=== PATIENT | male | born 1930 | race Caucasian/White ===

== ENCOUNTER → 2016-04-03 | Outpatient (CLI) | payer MEDICARE, BC ==
--- NOTE | 2016-04-03 15:13 | CT ---
EXAM DESCRIPTION: Chest CT. CLINICAL HISTORY: Shortness of breath. COMPARISON: July 2011. TECHNIQUE: A volumetric CT without IV contrast was acquired and displayed in multiplanar reconstructions. FINDINGS: Mediastinum: Pacing device noted. Coronary artery disease noted. Visualized lymph nodes are within normal limits for CT size criteria. No acute aortic abnormality, pericardial effusion, or mediastinal mass. Upper Abdomen: Visualized segments of the abdominal organs are unremarkable. Lungs: There is continued paraseptal emphysema noted bilaterally on today's study. Interval development of a superior segment right lower lobe medial lung mass. This measures 3.1 x 1.9 cm in diameter. No additional masses noted on today's study. Ground scarring in ground-glass seen within the right middle lobe, lingula and right lateral lung base. Bones: No suspicious bone lesion is seen. IMPRESSION: There is been interval development of a 3.1 x 1.9 cm medial right lower lobe pulmonary mass. This is located adjacent to the thoracic vertebral bodies. Biopsy is recommended. Dr. Klein was notified at time of dictation. Paraseptal emphysema has remained stable. Coronary artery disease also noted. Electronically signed by: Vincenzo Perez MD 04/03/2016 15:10
== END ==
LOC: CT 11:28
PROVIDERS: ATTEND Family Medicine
DX: R05 Cough (principal); R91.8 Other nonspecific abnormal finding of lung field; J43.8 Other emphysema; I25.10 Atherosclerotic heart disease of native coronary artery without angina pectoris; M62.81 Muscle weakness (generalized)

== ENCOUNTER → 2016-04-08 | Outpatient (CLI) | payer MEDICARE, BC | LOC: SL 20:30 | PROVIDERS: ATTEND Family Medicine | DX: G47.33 Obstructive sleep apnea (adult) (pediatric) (principal); I50.9 Heart failure, unspecified ==

== ENCOUNTER → 2016-05-20 | Outpatient (CLI) | payer MEDICARE, BC | LOC: SL 20:30 | PROVIDERS: ATTEND Family Medicine | DX: G47.33 Obstructive sleep apnea (adult) (pediatric) (principal) ==

== ENCOUNTER 2016-07-05 15:17 | Inpatient (IN) | payer MEDICARE, BC ==
[2016-07-05] MEDS ORDERED: MAGNESIUM HYDROXIDE 30 ML UD PO PRN (15:53)
[2016-07-05] MEDS ORDERED: DEXTROSE 50% 25 GM/50 ML SYG IV PRN (15:53)
[2016-07-05] MEDS ORDERED: SODIUM PHOS/BIPHOS ENEMA ADULT 133 ML BTTL PR PRN (15:53)
[2016-07-05] MEDS ORDERED: GLUCAGON INJ 1 MG VIAL SUBCU PRN (15:53)
[2016-07-05] MEDS: INSULIN LISPRO 100 UNITS/ML PEN SUBCU SCH ×2 (18:47→21:00)
--- NOTE | 2016-07-05 20:46 | HP ---
SUPERVISING PHYSICIAN: Angel Wheatley M.D. CHIEF COMPLAINT: Swing Bed admission for strengthening and reconditioning status post right lower lobe lobectomy for small cell lung carcinoma. HISTORY OF PRESENT ILLNESS: Mr. Wise is an 86 year-old male patient that was referred from [facility] having discharged today to be admitted to Swing Bed for conditioning and rehabilitation. He was admitted at [facility] on 06/27/16 for a right lower lobe lobectomy to remove a right lower lung tumor that was noted to be on biopsy as a non-small cell lung cancer. He had an elective thoracotomy with right lower lobe lobectomy with initial need for a chest tube placement. The patient did well through the hospitalization but given the length of stay, he was severely deconditioned and therefore it was requested that the patient be transferred from [facility] and admitted to Swing Bed to continue with rehabilitation and reconditioning efforts. The patient is placed into Swing Bed in stable condition. PAST MEDICAL HISTORY: 1. Hypertension. 2. Chronic obstructive pulmonary disease. 3. Gastroesophageal reflux disease. 4. Chronic incontinence. 5. Osteoarthritis. 6. Hypothyroidism. 7. Hyperlipidemia. 8. Coronary artery disease with multiple stent placements in 1996, 2004 and 2006. 9. Peripheral neuropathy. 10. History of paroxysmal atrial fibrillation with permanent pacemaker implantation. 11. Recent diagnosis of right lower lobe lung cancer identified as a non-small cell lung cancer. PAST SURGICAL HISTORY: 1. Bilateral cataract removal. 2. Coronary artery stent placements to the LAD in 1996, RCA in 2004 and a re-stent of the RCA in 2006. 3. Hernia repair in 1979. 4. Tonsillectomy. 5. Left stapedectomy. 6. Prostatectomy secondary to prostate cancer. 7. Inguinal hernia repair. 8. Vasectomy. 9. Cardiac pacemaker implantation. HOME MEDICATIONS: Please refer to updated list of home medications that have been verified on admission in the electronic medical records. ALLERGIES: CODEINE AND PENICILLIN G. FAMILY HISTORY: Father is . Mother from cancer, unknown. SOCIAL HISTORY: The patient is retired from [employer] in [place]. He is and lives in [place]. He does have a previous history of cigarette smoking but quit 27 year previous to this admission. Does not drink or use illicit drugs. REVIEW OF SYSTEMS: The patient denies any chills, fever, fatigue or weight change. HEENT: No noted ear pain, rhinorrhea or sore throat. CARDIOVASCULAR: Denies any chest pains, orthopnea or syncopal episodes. Does note he had some pedal edema which is more prominent on the right than the left. RESPIRATORY: As noted in the History of Present Illness. History of right lower lobe lung cancer status post lobectomy. GASTROINTESTINAL: History of hematochezia. Denied any nausea or vomiting, diarrhea and no recent hematochezia. MUSCULOSKELETAL: Negative for any arthralgias, back pain or myalgias. INTEGUMENT: Negative for jaundice or rashes. NEUROLOGIC: Negative for ataxia, headaches, syncopal episodes or other neurological complaints. PHYSICAL EXAMINATION: VITAL SIGNS: Pending at time of admission. Admission weight 102.9 kg. GENERAL: The patient appears to be well nourished, well hydrated in no acute distress. HEENT: Oropharynx is pink and moist without any lesions. There is no jugular venous distention. NECK: No jugular venous distention. CHEST: Lungs are clear. There is no rhonchi heard. There is notable decreased breath sounds to the right lower anterior aspect of the lung but no wheezing or rales. CARDIOVASCULAR: Regular rate and rhythm without appreciable murmurs, gallops, or rubs. ABDOMEN: Obese but soft, non-tender. Positive bowel sounds. EXTREMITIES: There is a trace edema to the right leg compared to the left. Pulses distally are 1+. He moves all extremities ad sheyla. NEUROLOGIC: He is alert and oriented times three. Cranial nerves II-XII are grossly intact. Facial features are symmetric. Extraocular movements are within normal limits. There is no nystagmus. There is no notable localizing or lateralizing neuro deficits. LABORATORY: CBC, CMP and urinalysis pending. RADIOLOGY: Two view chest x-ray pending. ASSESSMENT: 1. Status post right lower lobe lobectomy for excision of a non-small cell lung cancer mass requiring chest tube placement now requiring Swing Bed admission for reconditioning and physical therapy. 2. History of chronic obstructive pulmonary disease with recent right lower lobe lobectomy requiring Swing Bed admission for strengthening and reconditioning. 3. Hypothyroidism on supplementation. 4. Hypertension. 5. History of PSVTs with permanent pacemaker implantation. 6. Coronary artery disease with multiple stent placements. 7. Peripheral neuropathies. 8. Gastroesophageal reflux disease. 9. Chronic incontinence. 10. Osteoarthritis. 11. Hyperlipidemia. PLAN: The patient is admitted to Swing Bed to assist in reconditioning and strengthening to assist with the patient being transitioned to home from a lengthy hospitalization from recent surgery to remove a small cell lung carcinoma on the right lower lobe. The patient will be provided physical therapy and followed closely as he progresses through set goals. Will restart his medications once those have been updated and verified, and begin DVT prophylaxis as per protocol. In addition to his physical therapy, will provide pulmonary hygiene to include incentive spirometry every 2 hours while awake and monitor closely. Will anticipate length of stay to be anywhere from 3 to 7 days. Until discharge, will continue to monitor the patient closely and treat appropriately. The patient does have a followup appointment scheduled prior to admission to Swing Bed that has been arranged at [facility] which is with Dr. Mckenzie on July 11 at 1514. He is to have a two view chest x-ray prior to this followup appointment as well as bring his incentive spirometry with him. #[id number] [facility]
[2016-07-05] MEDS: ACETAMINOPHEN 500 MG TAB PO PRN (21:06)
[2016-07-06] MEDS: ACETAMINOPHEN 500 MG TAB PO PRN ×2 (04:29→10:15)
[2016-07-06] MEDS: INSULIN LISPRO 100 UNITS/ML PEN SUBCU SCH ×4 (07:27→21:00)
[2016-07-06] MEDS: MULTIPLE VITAMINS W/ MINERALS 1 EA TAB PO SCH (09:16)
[2016-07-06] MEDS: LEVOTHYROXINE SODIUM 0.025 MG TAB PO SCH (09:16)
[2016-07-06] MEDS: ASCORBIC ACID 500 MG TAB PO SCH (09:16)
[2016-07-06] MEDS: METOPROLOL SUCCINATE XL 50 MG TAB PO SCH ×2 (09:16→20:30)
[2016-07-06] MEDS: FISH OIL 1,200 MG CAP PO SCH ×2 (09:16→20:30)
[2016-07-06] MEDS: CALCIUM CARBONATE-VITAMIN D 500 MG TAB PO SCH (09:16)
[2016-07-06] MEDS: LISINOPRIL 10 MG TAB PO SCH ×2 (09:16→20:30)
[2016-07-06] MEDS: GABAPENTIN 300 MG CAP PO SCH ×3 (09:16→20:30)
[2016-07-06] MEDS: hydroCHLOROthiazide 25 MG TAB PO SCH (09:16)
[2016-07-06] MEDS: ASPIRIN EC 81 MG TAB PO SCH (09:16)
[2016-07-06] MEDS: POTASSIUM CHLORIDE 10 MEQ TAB PO SCH (09:16)
[2016-07-06] MEDS: FOLIC ACID,B6,B12 1 TAB PO SCH (09:18)
[2016-07-06] MEDS: DOCUSATE SODIUM 100 MG CAP PO SCH (09:19)
--- NOTE | 2016-07-06 09:25 | RAD ---
PROCEDURE: Chest,2 Views CLINICAL HISTORY: s/p RLL lobectomy now on swing bed admit INDICATION: Same as above COMPARISON: CT of the chest done on April 03, 2016 TECHNIQUE: PA and and lateral chest radiographs were obtained. FINDINGS: There is a dual-chamber left-sided pacemaker. There is blunting of the right costophrenic angle and suggestion of right-sided pleural thickening. Volume loss in the right hemithorax is seen due to prior right lower lobe lobectomy. Note is made of mediastinal shift to the right side due to volume loss in the left hemithorax. There is presence of moderate size infiltrate/atelectasis involving the right lower lung zone, new in appearance since the prior CT examination done on April 03, 2016 There is no pneumothorax. IMPRESSION: Right side pleural thickening, right-sided mediastinal shift due to volume loss in the right hemithorax and presence of moderate size infiltrate/atelectasis in the right lower lung zone Place of interpretation: T[facility]. Electronically signed by: Johann Navarrete MD 07/06/2016 9:24 AM CDT
[2016-07-06] MEDS: HYDROcodone 5MG/APAP 325MG 1 EA TAB PO PRN (11:52)
[2016-07-06] MEDS ORDERED: ZOLPIDEM TARTRATE 10 MG TAB ONE (19:59)
[2016-07-06] MEDS: ZOLPIDEM TARTRATE 10 MG TAB PO SCH (20:31)
[2016-07-06] MEDS: ATORVASTATIN 10 MG TAB PO SCH (20:41)
[2016-07-07] MEDS: LEVOTHYROXINE SODIUM 0.025 MG TAB PO SCH (05:47)
[2016-07-07] MEDS: HYDROcodone 5MG/APAP 325MG 1 EA TAB PO PRN ×3 (05:50→16:01)
[2016-07-07] MEDS: INSULIN LISPRO 100 UNITS/ML PEN SUBCU SCH ×4 (07:48→21:17)
[2016-07-07] MEDS: POTASSIUM CHLORIDE 10 MEQ TAB PO SCH (07:48)
[2016-07-07] MEDS: FOLIC ACID,B6,B12 1 TAB PO SCH (09:05)
[2016-07-07] MEDS: LISINOPRIL 10 MG TAB PO SCH ×2 (09:05→21:11)
[2016-07-07] MEDS: DOCUSATE SODIUM 100 MG CAP PO SCH (09:06)
[2016-07-07] MEDS: CALCIUM CARBONATE-VITAMIN D 500 MG TAB PO SCH (09:06)
[2016-07-07] MEDS: hydroCHLOROthiazide 25 MG TAB PO SCH (09:06)
[2016-07-07] MEDS: ASCORBIC ACID 500 MG TAB PO SCH (09:06)
[2016-07-07] MEDS: METOPROLOL SUCCINATE XL 50 MG TAB PO SCH ×2 (09:06→21:11)
[2016-07-07] MEDS: ASPIRIN EC 81 MG TAB PO SCH (09:06)
[2016-07-07] MEDS: GABAPENTIN 300 MG CAP PO SCH ×3 (09:06→21:11)
[2016-07-07] MEDS: FISH OIL 1,200 MG CAP PO SCH ×2 (09:06→21:10)
[2016-07-07] MEDS: MULTIPLE VITAMINS W/ MINERALS 1 EA TAB PO SCH (09:06)
[2016-07-07] MEDS: ATORVASTATIN 10 MG TAB PO SCH (21:11)
[2016-07-07] MEDS: ZOLPIDEM TARTRATE 10 MG TAB PO SCH (21:11)
[2016-07-08] MEDS: LEVOTHYROXINE SODIUM 0.025 MG TAB PO SCH (06:30)
[2016-07-08] MEDS: INSULIN LISPRO 100 UNITS/ML PEN SUBCU SCH ×4 (07:59→21:00)
[2016-07-08] MEDS: POTASSIUM CHLORIDE 10 MEQ TAB PO SCH (07:59)
[2016-07-08] MEDS: ASCORBIC ACID 500 MG TAB PO SCH (09:05)
[2016-07-08] MEDS: ASPIRIN EC 81 MG TAB PO SCH (09:05)
[2016-07-08] MEDS: LISINOPRIL 10 MG TAB PO SCH ×2 (09:05→20:44)
[2016-07-08] MEDS: FOLIC ACID,B6,B12 1 TAB PO SCH (09:05)
[2016-07-08] MEDS: METOPROLOL SUCCINATE XL 50 MG TAB PO SCH ×2 (09:06→20:44)
[2016-07-08] MEDS: GABAPENTIN 300 MG CAP PO SCH ×3 (09:06→20:44)
[2016-07-08] MEDS: hydroCHLOROthiazide 25 MG TAB PO SCH (09:06)
[2016-07-08] MEDS: DOCUSATE SODIUM 100 MG CAP PO SCH (09:06)
[2016-07-08] MEDS: FISH OIL 1,200 MG CAP PO SCH ×2 (09:06→20:44)
[2016-07-08] MEDS: MULTIPLE VITAMINS W/ MINERALS 1 EA TAB PO SCH (09:06)
[2016-07-08] MEDS: CALCIUM CARBONATE-VITAMIN D 500 MG TAB PO SCH (09:06)
[2016-07-08] MEDS: HYDROcodone 5MG/APAP 325MG 1 EA TAB PO PRN ×3 (09:13→20:44)
[2016-07-08] MEDS: ZOLPIDEM TARTRATE 10 MG TAB PO SCH (20:44)
[2016-07-08] MEDS: ATORVASTATIN 10 MG TAB PO SCH (20:44)
[2016-07-09] MEDS: LEVOTHYROXINE SODIUM 0.025 MG TAB PO SCH (05:57)
[2016-07-09] MEDS: HYDROcodone 5MG/APAP 325MG 1 EA TAB PO PRN ×4 (05:57→20:07)
[2016-07-09] MEDS: POTASSIUM CHLORIDE 10 MEQ TAB PO SCH (07:55)
[2016-07-09] MEDS: INSULIN LISPRO 100 UNITS/ML PEN SUBCU SCH ×4 (07:56→21:09)
[2016-07-09] MEDS: METOPROLOL SUCCINATE XL 50 MG TAB PO SCH ×2 (10:38→21:08)
[2016-07-09] MEDS: MULTIPLE VITAMINS W/ MINERALS 1 EA TAB PO SCH (10:38)
[2016-07-09] MEDS: CALCIUM CARBONATE-VITAMIN D 500 MG TAB PO SCH (10:38)
[2016-07-09] MEDS: FISH OIL 1,200 MG CAP PO SCH ×2 (10:39→21:08)
[2016-07-09] MEDS: ASPIRIN EC 81 MG TAB PO SCH (10:39)
[2016-07-09] MEDS: FOLIC ACID,B6,B12 1 TAB PO SCH (10:39)
[2016-07-09] MEDS: GABAPENTIN 300 MG CAP PO SCH ×3 (10:39→21:08)
[2016-07-09] MEDS: LISINOPRIL 10 MG TAB PO SCH ×2 (10:39→21:08)
[2016-07-09] MEDS: DOCUSATE SODIUM 100 MG CAP PO SCH (10:39)
[2016-07-09] MEDS: CIPROFLOXACIN 500 MG TAB PO SCH ×2 (14:15→21:09)
[2016-07-09] MEDS: hydroCHLOROthiazide 25 MG TAB PO SCH (14:25)
[2016-07-09] MEDS: ASCORBIC ACID 500 MG TAB PO SCH (14:25)
--- NOTE | 2016-07-09 18:59 | PCM.CORE ---
Physician DVT/VTE - Nurse DVT Assessment & Total Each Risk Factor Represents 3 Points: Age over 75 years Each Risk Factor Represents 2 Points: Malignancy (present/past) Each Risk Factor is 1 Point: Obesity (BMI >25), Serious Lung disease (pnemonia < 1month, COPD, emphysema,etc) DVT Assessment Score: 7 - 5 or more Very High Risk Treatments: Early Ambulation *, Sequential Compression Device Pharmacological: Enoxaparin 40mg SQ Daily
[2016-07-09] MEDS: ENOXAPARIN SODIUM 40 MG/0.4 ML SYG SUBCU SCH ×2 (20:06→21:07)
[2016-07-09] MEDS: ATORVASTATIN 10 MG TAB PO SCH (21:08)
[2016-07-09] MEDS: ZOLPIDEM TARTRATE 10 MG TAB PO SCH (21:09)
[2016-07-10] MEDS: LEVOTHYROXINE SODIUM 0.025 MG TAB PO SCH (05:56)
[2016-07-10] MEDS: INSULIN LISPRO 100 UNITS/ML PEN SUBCU SCH ×5 (07:15→21:29)
[2016-07-10] MEDS: POTASSIUM CHLORIDE 10 MEQ TAB PO SCH (08:00)
[2016-07-10] MEDS: HYDROcodone 5MG/APAP 325MG 1 EA TAB PO PRN ×2 (08:10→21:30)
[2016-07-10] MEDS: ASCORBIC ACID 500 MG TAB PO SCH (08:20)
[2016-07-10] MEDS: CALCIUM CARBONATE-VITAMIN D 500 MG TAB PO SCH (08:20)
[2016-07-10] MEDS: DOCUSATE SODIUM 100 MG CAP PO SCH (08:20)
[2016-07-10] MEDS: LISINOPRIL 10 MG TAB PO SCH ×2 (08:20→21:30)
[2016-07-10] MEDS: FOLIC ACID,B6,B12 1 TAB PO SCH (08:20)
[2016-07-10] MEDS: METOPROLOL SUCCINATE XL 50 MG TAB PO SCH ×2 (08:20→21:30)
[2016-07-10] MEDS: hydroCHLOROthiazide 25 MG TAB PO SCH (08:20)
[2016-07-10] MEDS: CIPROFLOXACIN 500 MG TAB PO SCH ×2 (08:20→21:30)
[2016-07-10] MEDS: FISH OIL 1,200 MG CAP PO SCH ×2 (08:20→21:30)
[2016-07-10] MEDS: ASPIRIN EC 81 MG TAB PO SCH (08:20)
[2016-07-10] MEDS: GABAPENTIN 300 MG CAP PO SCH ×3 (08:20→21:30)
[2016-07-10] MEDS: MULTIPLE VITAMINS W/ MINERALS 1 EA TAB PO SCH (08:20)
--- NOTE | 2016-07-10 08:51 | PN ---
SUPERVISING PHYSICIAN: Linda Olivier MD DATE: 07/09/16 SUBJECTIVE: The patient is doing well. He is working with physical therapy. He does have some pain in his right lateral aspect of his chest which is associated palpitation and deep breathing. He remains afebrile, but did show evidence of a urinary tract infection with cultures being positive with Klebsiella species. I started him on some antibiotics today. He does remain asymptomatic. OBJECTIVE: VITAL SIGNS: T-max 100.5 on initial admission. Pulse 68. Blood pressure 130/60. Respirations 20 at rest. Saturation 93% on room air. I&Os fairly well balanced with negative 250 with 1200 in and 1450 out. He has had several bowel movements. CHEST: Lungs diminished again towards the right anterior posterolateral aspect of the right lung with some coarse sounds, but no wheezing or rhonchi noted. Palpation over the anterior pericardium scar shows no signs of infection. Chest tube site is clean and dry with pressure dressings applied. HEART: Regular rate and rhythm. ABDOMEN: Soft, nontender. Positive bowel sounds. EXTREMITIES: No notable cyanosis, clubbing or edema. NEUROLOGIC: Alert and oriented times three. LABORATORY: On admission, CBC showed white count 13.6, hemoglobin 12.6, hematocrit 37.9, platelet count 274,000, differential with no left shift. Chemistries on admission showed normal electrolytes with potassium 3.8, BUN 22, creatinine 1.55. Blood sugars have been fairly stable in the 120s to 140s. Liver functions within normal limits on admission. Urinalysis initially showed 2+ bacteria with positive nitrates. MICROBIOLOGY: Urine culture showed Klebsiella oxytoca which was sensitive to Cipro, but resistant to piperacillin and ampicillin. See final report for full details. RADIOLOGY: Chest x-ray on admission showed right slight pleural thickening, right sided mediastinal shift due to volume loss in the right hemithorax with presence of moderate sized infiltrate in the right lower lung zone. There was no pneumothorax noted. ASSESSMENT: 1. Status post right lower lobe lobectomy for excision of a non-small cell lung cancer mass requiring chest tube placement, now requiring Swing Bed admission for reconditioning and physical therapy from [facility]. 2. Urinary tract infection, acquired prior to hospitalization from previous catheterization at [facility] likely with final culture results showing Klebsiella oxytoca that was sensitive to Cipro. 3. Hypothyroidism on supplementation. 4. Hypertension. 5. 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 6. Coronary artery disease with multiple stent placements. 7. Peripheral neuropathies. 8. Gastroesophageal reflux disease. 9. Chronic incontinence. 10. Osteoarthritis. 11. Hyperlipidemia. PLAN: We will continue to follow the patient through his rehabilitation efforts and reconditioning. Given that he has an underlying urinary tract infection, I did start him on Cipro 500 mg daily which should be continued for at least 5 to 7 days. Anticipate discharge at physical therapy's discretion. The patient is doing well. He has a followup appointment with his thoracic surgeon on 07/11/[address] Mckenzie at [facility]. I have not done any wound management other than clean the chest tube site, stitch remains in place and dressings were applied. There remains a postoperative dressing in place over the thoracotomy incision. Anticipate if the patient is not discharged, he can at least leave on pass to followup with Dr. Mckenzie. If not, then we need to call and talk to Dr. Mckenzie in regards to plans for additional wound care management. Until then, we will continue to monitor the patient closely and treat appropriately. #[id number] [facility]
[2016-07-10] MEDS: ALUMINUM & MAGNESIUM HYDROXIDE 30 ML UD PO PRN (16:20)
[2016-07-10] MEDS: ATORVASTATIN 10 MG TAB PO SCH (21:30)
[2016-07-10] MEDS: ZOLPIDEM TARTRATE 10 MG TAB PO SCH (21:31)
[2016-07-10] MEDS: ENOXAPARIN SODIUM 40 MG/0.4 ML SYG SUBCU SCH (21:31)
[2016-07-11] MEDS: LEVOTHYROXINE SODIUM 0.025 MG TAB PO SCH (06:20)
[2016-07-11] MEDS: INSULIN LISPRO 100 UNITS/ML PEN SUBCU SCH ×4 (07:13→20:54)
[2016-07-11] MEDS: POTASSIUM CHLORIDE 10 MEQ TAB PO SCH (08:05)
[2016-07-11] MEDS: GABAPENTIN 300 MG CAP PO SCH ×3 (09:05→20:54)
[2016-07-11] MEDS: METOPROLOL SUCCINATE XL 50 MG TAB PO SCH ×2 (09:05→20:54)
[2016-07-11] MEDS: FISH OIL 1,200 MG CAP PO SCH ×2 (09:06→20:53)
[2016-07-11] MEDS: LISINOPRIL 10 MG TAB PO SCH ×2 (09:07→20:54)
[2016-07-11] MEDS: DOCUSATE SODIUM 100 MG CAP PO SCH (09:07)
[2016-07-11] MEDS: ASPIRIN EC 81 MG TAB PO SCH (09:07)
[2016-07-11] MEDS: MULTIPLE VITAMINS W/ MINERALS 1 EA TAB PO SCH (09:07)
[2016-07-11] MEDS: CALCIUM CARBONATE-VITAMIN D 500 MG TAB PO SCH (09:07)
[2016-07-11] MEDS: CIPROFLOXACIN 500 MG TAB PO SCH ×2 (09:07→20:53)
[2016-07-11] MEDS: hydroCHLOROthiazide 25 MG TAB PO SCH (09:07)
[2016-07-11] MEDS: ASCORBIC ACID 500 MG TAB PO SCH (09:07)
[2016-07-11] MEDS: FOLIC ACID,B6,B12 1 TAB PO SCH (09:09)
[2016-07-11] MEDS: ALUMINUM & MAGNESIUM HYDROXIDE 30 ML UD PO PRN (12:52)
[2016-07-11] MEDS: HYDROcodone 5MG/APAP 325MG 1 EA TAB PO PRN ×2 (12:54→17:48)
[2016-07-11] MEDS: BIFIDOBACTERIUM INFANTIS 4 MG CAP PO SCH (18:45)
[2016-07-11] MEDS: ATORVASTATIN 10 MG TAB PO SCH (20:53)
[2016-07-11] MEDS: ZOLPIDEM TARTRATE 10 MG TAB PO SCH (20:53)
[2016-07-11] MEDS: ENOXAPARIN SODIUM 40 MG/0.4 ML SYG SUBCU SCH (20:53)
[2016-07-12] MEDS: LEVOTHYROXINE SODIUM 0.025 MG TAB PO SCH (06:08)
[2016-07-12] MEDS: INSULIN LISPRO 100 UNITS/ML PEN SUBCU SCH ×2 (07:30→12:40)
[2016-07-12] MEDS: POTASSIUM CHLORIDE 10 MEQ TAB PO SCH (08:05)
[2016-07-12] MEDS: ASCORBIC ACID 500 MG TAB PO SCH (09:14)
[2016-07-12] MEDS: CALCIUM CARBONATE-VITAMIN D 500 MG TAB PO SCH (09:14)
[2016-07-12] MEDS: BIFIDOBACTERIUM INFANTIS 4 MG CAP PO SCH (09:14)
[2016-07-12] MEDS: MULTIPLE VITAMINS W/ MINERALS 1 EA TAB PO SCH (09:14)
[2016-07-12] MEDS: GABAPENTIN 300 MG CAP PO SCH ×2 (09:15→15:27)
[2016-07-12] MEDS: DOCUSATE SODIUM 100 MG CAP PO SCH (09:15)
[2016-07-12] MEDS: FOLIC ACID,B6,B12 1 TAB PO SCH (09:15)
[2016-07-12] MEDS: FISH OIL 1,200 MG CAP PO SCH (09:15)
[2016-07-12] MEDS: LISINOPRIL 10 MG TAB PO SCH (09:15)
[2016-07-12] MEDS: hydroCHLOROthiazide 25 MG TAB PO SCH (09:15)
[2016-07-12] MEDS: ASPIRIN EC 81 MG TAB PO SCH (09:15)
[2016-07-12] MEDS: METOPROLOL SUCCINATE XL 50 MG TAB PO SCH (09:15)
[2016-07-12] MEDS: CIPROFLOXACIN 500 MG TAB PO SCH (09:15)
[2016-07-12 09:23] VITALS: O2SAT 96
[2016-07-12] MEDS: HYDROcodone 5MG/APAP 325MG 1 EA TAB PO PRN (15:33)
[2016-07-12 17:54] VITALS: BP 126/78; TEMP 98.6
--- NOTE | 2016-07-17 10:51 | DS ---
SUPERVISING PHYSICIAN: Linda Olivier MD DISCHARGE DIAGNOSIS: 1. Status post right lower lobe lobectomy for excision of a non-small cell lung cancer mass requiring chest tube placement, now requiring Swing Bed admission for reconditioning and physical therapy from [facility]. 2. Urinary tract infection, acquired prior to hospitalization from previous catheterization at [facility] likely with final culture results showing Klebsiella oxytoca that was sensitive to Cipro. 3. Hypothyroidism on supplementation. 4. Hypertension. 5. 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 6. Coronary artery disease with multiple stent placements. 7. Peripheral neuropathies. 8. Gastroesophageal reflux disease. 9. Chronic incontinence. 10. Osteoarthritis. 11. Hyperlipidemia. HISTORY OF PRESENT ILLNESS: This is an 86-year-old, male patient that was transferred to [facility] for Swing Bed for conditioning and rehabilitation on the date of admission. He had been previously admitted to [facility] on 06/27/16 for a right lower lobectomy and to remove a right lower lung tumor that was noted to be on biopsy a non-small cell carcinoma. He had an elective thoracotomy with the right lower lobectomy and initially had chest tube placement. The patient did well through his hospitalization, but given his extensive length of stay at [facility] and he was severely de-conditioned, he was referred to [facility] for Swing Bed admission to continue with his rehabilitation and reconditioning efforts. HOSPITAL COURSE: During his hospital stay, he progressed well and became stronger each day. He met the requirements for physical therapy. On the day prior to discharge, he went to see Dr. Mckenzie, his cardiovascular surgeon in [place], for a checkup and Dr. Mckenzie felt that if he met his requirements for physical therapy and he was safe to go home, he could be discharged in the next day or two. He saw Dr. Mckenzie the day prior to discharge. Today, the patient is to be discharged home. DISCHARGE PLAN: The patient is to be discharged home in stable condition. He will be discharged to [facility]. He is to followup with Dr. Klein within one to two weeks. He is to resume his previous diet. He is to followup with Dr. Mckenzie, Dr. Klein, or return to the hospital for any complications or problems. DISCHARGE MEDICATIONS: 1. Calcium. 2. B vitamins. 3. Vitamin C. 4. Zolpidem. 5. Divide 3 fatty acids. 6. Micro-K. 7. Synthroid. 8. Lipitor. 9. Metoprolol. 10. Lisinopril. 11. Hydrochlorothiazide. 12. Aspirin. 13. Multivitamin. 14. Doxycycline. 15. Gabapentin. 16. Hydrocodone. 17. Align. 18. Colace. 19. Ciprofloxacin. Dr. Olivier is the collaborating physician and available for consultation. #[id number] [facility]
== END 2016-07-12 16:18 | disposition home health service (06) | DRG 949 ==
LOC: MS 15:17
PROVIDERS: ADMIT Nurse Practitioner Family; ATTEND Emergency Medicine
DX: Z48.813 Encounter for surgical aftercare following surgery on the respiratory system (principal); C34.31 Malignant neoplasm of lower lobe, right bronchus or lung; T83.511A Infection and inflammatory reaction due to indwelling urethral catheter, initial encounter; N39.0 Urinary tract infection, site not specified; Z16.11 Resistance to penicillins; B96.1 Klebsiella pneumoniae [K. pneumoniae] as the cause of diseases classified elsewhere; I10 Essential (primary) hypertension; J44.9 Chronic obstructive pulmonary disease, unspecified; K21.9 Gastro-esophageal reflux disease without esophagitis; R32 Unspecified urinary incontinence; M19.90 Unspecified osteoarthritis, unspecified site; E03.9 Hypothyroidism, unspecified; E78.5 Hyperlipidemia, unspecified; I25.10 Atherosclerotic heart disease of native coronary artery without angina pectoris; G62.9 Polyneuropathy, unspecified; E66.9 Obesity, unspecified; Z95.5 Presence of coronary angioplasty implant and graft; Z95.0 Presence of cardiac pacemaker; Z85.46 Personal history of malignant neoplasm of prostate; Z88.5 Allergy status to narcotic agent; Z88.0 Allergy status to penicillin; Z87.891 Personal history of nicotine dependence; Z90.2 Acquired absence of lung [part of]

== ENCOUNTER → 2016-12-09 | Outpatient (CLI) | payer MEDICARE, BC ==
--- NOTE | 2016-12-09 12:49 | CT ---
EXAM DESCRIPTION: Head w/Contrast CLINICAL HISTORY: CEREBRAL INFARCTION. Lung Cancer. COMPARISON: Ultrasound carotid duplex on the same visit. TECHNIQUE: Spiral -axial scans through the head and brain at 2.5 intervals, without and with nonionic IV contrast. Coronal and sagittal 2.0 mm reconstructions. No adverse reactions. Total Exam DLP: 1354.46 mGy-cm. This exam was performed according to our departmental CT dose-optimization program which includes automated exposure control, adjustment of the mA and/or kV according to patient size and/or use of iterative reconstruction technique; to reduce radiation dose to as low as reasonably achievable (ALARA). FINDINGS: No hemorrhage. Large collection of low-density in the left frontal white matter consistent with edema. Closer to the vertex above the level of the ventricles is a parasagittal ring-enhancing mass measuring 1.7 x 1.0 x 1.8 cm. Mass effect on the adjacent cortical hughes matter and sulci. Also on the anterior aspect of the left ventricle. Normal contrast enhancement in the remainder of the brain. Vascular calcifications anterior; physiologic calcifications in the pineal gland and choroid plexus. No effacement or displacement of the ventricles, CSF spaces, or subdural spaces. Age-related cortical atrophy right cerebral hemisphere in the left occipital lobe. Normal contrast enhancement. No extra axial fluid collection or hemorrhage. No gross abnormalities of the bony calvarium. No unusual enhancement in the [place]. IMPRESSION: 1. No hemorrhage. Ring-enhancing parasagittal lesion in the left frontal lobe which is also likely a metastasis with significant amount of white matter edema in the left frontal lobe and focal mass effect.. Mass effect on the left anterior ventricle. No subfalcine herniation or tonsillar herniation. Age related cortical atrophy more noticeable in the bilateral occipital lobes and the right frontal and parietal lobe due to lack of mass effect. 2. CT scans are insensitive for detecting small CVA's in the first 24 hours after onset. Evaluation of the brain stem is also limited. If symptoms persist, consider MRI scan of the brain with diffusion imaging. CRITICAL COMMUNICATION: The critical value was discussed directly by phone with Dr. Andres Klein at approximately 1240 hours, on December 09, 2016. Electronically signed by: Andres Stearns MD 12/09/2016 12:48 PM CDT
--- NOTE | 2016-12-09 12:59 | US ---
EXAM DESCRIPTION: Carotid Duplex: Ultrasound. CLINICAL HISTORY: CEREBELLAR CVA. Lung cancer. Decreasing verbalization. COMPARISON: CT scan of brain without and with IV contrast today. TECHNIQUE: Transcutaneous scanning utilizing 2-dimensional and Doppler modes to evaluate the bilateral carotid systems and vertebral arteries. Percentage of diameter of stenosis or no stenosis recorded will be based upon NASCET criteria. FINDINGS: Peak systolic/end diastolic (CM-Sec) CCA Right 72/10 Left 64/8. ICA Right proximal 59/13, distal 64/21. Left proximal 49/10, mid 55/16. Vertebral Right 41/12 Left 43/8. ECA (PS Only) Right 90 left 85. ICA/CCA peak systolic ratio: Right 0.9 Left 0.9 ICA/CCA end diastolic ratio: Right 2.3 Left 1.9 Vertebral arteries: antegrade flow. Comments: Atherosclerotic calcifications in the bilateral common carotid bulbs and proximal ICAs. Bilateral proximal ICAs with spectral broadening of the waveforms. Area stenosis of the right CCA bulb is 40%; diameter stenosis is approximately 60%. Area stenosis of the proximal right ICA is 32% and diameter stenosis approximately 40%. Area stenosis of the left CCA bulb is 52% and diameter stenosis 44%. Area stenosis of the proximal left ICA is 30% and diameter stenosis 47%. IMPRESSION: 1. Doppler evaluation of the bilateral carotid systems and vertebral arteries shows no hemodynamically significant stenoses. Diameter stenosis of the right CCA bulb is 60%. 2. Moderate amount of plaque seen in the carotid arteries bilaterally. Bilateral vertebral arteries showed antegrade-cephalad flow. Electronically signed by: Andres Stearns MD 12/09/2016 12:57 PM CDT
== END | disposition home or self-care (01) ==
LOC: CT 11:18
PROVIDERS: ATTEND Family Medicine
DX: I63.513 Cerebral infarction due to unspecified occlusion or stenosis of bilateral middle cerebral arteries (principal); E03.9 Hypothyroidism, unspecified

== ENCOUNTER → 2016-12-25 | Outpatient (CLI) | payer MEDICARE, BC ==
--- NOTE | 2016-12-25 15:58 | CT ---
EXAM DESCRIPTION: Chest w/Contrast CLINICAL HISTORY: 86 years, Male, RLL MASS COMPARISON: April 03, 2016 TECHNIQUE: Thin-section axial CT images are obtained during rapid bolus administration of nonionic IV contrast media. Reconstructed MPR images are created and reviewed as well. This exam was performed according to our departmental dose-optimization program, which includes automated exposure control, adjustment of the mA and/or kV according to patient size and/or use of iterative reconstruction technique. FINDINGS: Enhanced examination of the chest demonstrates evidence of prior resection with volume loss in the right hemithorax and hyperexpansion of the remaining left lung. Mild bullous and fibrotic changes on the left are present with no significant effusion or infiltrate or mass and mild focal fibrotic changes again seen at the anterior left lung base. There is shift of the heart mediastinum into the right hemithorax. Permanent cardiac pacer is in place with extensive coronary calcification with no evidence of pericardial effusion. Prior resection in the region of the right hilum and mediastinum with surgical clips is noted. Right hemithorax is diminished in size with a small amount of pleural fluid at the posterior right lung base. Previously noted paraspinous mass in the mid lung field is no longer apparent. At the lateral posterior right lung base there is a small band of atelectatic or fibrotic density that is somewhat linear in appearance. Just cephalad and lateral and to this band of density in a subpleural location is a small multilobulated approximate 0.8 x 1.3 cm slightly irregular noncalcified nodule. This is more masslike than the adjacent band of parenchymal density tiny amount of coarsened groundglass opacity in this location is questionably present on the preoperative study. Small metastatic nodule or area of tumor is thought possible. PET/CT imaging if possible is recommended for further evaluation of this. Otherwise consider very early follow-up with repeat imaging in 3-4 months to assess interval change. Below the diaphragm small benign cyst within the liver are noted and normal-appearing adrenal glands and region of the pancreas and spleen and upper poles of the kidneys are noted. IMPRESSION: 1. Interval right lung partial resection with volume loss and small basilar effusion with platelike scarring or atelectasis at the posterior lateral right lung base. 2. Small irregular lobulated 0.8 x 1.3 cm subpleural nodule in the posterior lateral right lung base adjacent to the linear scarring and suspicious for either a small focus of metastatic disease or neoplasm. Consider PET/CT imaging for further evaluation. If this is not performed consider early 3-4 month follow-up to reassess for interval change. 3. Hyperexpanded left lung with no evidence of metastatic disease in the remainder of the aerated right lung is unremarkable. 4. Mediastinal or hilar metastatic disease is not apparent. Electronically signed by: Jorgito Chen MD 12/25/2016 3:56 PM CDT
== END | disposition home or self-care (01) ==
LOC: CT 09:30
PROVIDERS: ATTEND Family Medicine
DX: I63.50 Cerebral infarction due to unspecified occlusion or stenosis of unspecified cerebral artery (principal); R91.8 Other nonspecific abnormal finding of lung field